=== PATIENT | male | born 1945 | race Caucasian/White ===

== ENCOUNTER 2022-09-15 03:17 | Emergency (ER) | payer MEDICARE ==
[~2022-09-15] VITALS: Ht 177.8 cm; Wt 88.5 kg
[~2022-09-15 03:17] MED LIST: ALLO100 PO; AMOX500 PO; CEPH500; CEPH500 PO; CIME400 PO; CLON.5 PO; CLOT1TC TOP; COLC.6 PO; COLCHICINE0.6 MG PO; DIPH25 PO; DIPH50 PO; DOXY100 PO; FLUO20; LANS30EC PO; LORA.5 PO; OMEP10ER PO; OXYACE5T PO; PENVK500 PO; PROM25 PO; SULTRIDS PO; Synthroid25 MCG PO
== END 2022-09-15 04:31 | disposition home or self-care (01) ==
LOC: ER 03:17
DX: B34.9 Viral infection, unspecified (principal); F17.210 Nicotine dependence, cigarettes, uncomplicated; Z79.890 Hormone replacement therapy; Z79.899 Other long term (current) drug therapy
CPT/HCPCS: 93005; 93010

== ENCOUNTER 2025-11-06 00:06 | Emergency (ER) | payer MEDICARE ==
[~2025-11-06] VITALS: Ht 177.8 cm; Wt 83.9 kg
[2025-11-06] MEDS ORDERED: CLIN300 PO (00:28)
[2025-11-06 00:30] VITALS: BP 122/74
== END 2025-11-06 00:39 | disposition home or self-care (01) ==
LOC: ER 00:06
DX: L03.211 Cellulitis of face (principal); K04.7 Periapical abscess without sinus; Z88.0 Allergy status to penicillin; Z88.8 Allergy status to other drugs, medicaments and biological substances; Z79.899 Other long term (current) drug therapy; J44.9 Chronic obstructive pulmonary disease, unspecified; F17.200 Nicotine dependence, unspecified, uncomplicated
CPT/HCPCS: 99282; A9270